=== PATIENT | male | born 1970 | race Hispanic/Latino ===

== ENCOUNTER → 2018-06-23 | Outpatient (REF) | payer OTHER ==
[2018-06-23 18:14] LABS: RHEUMATOID FACTOR QUANT < 10.0 IU/ML (<15.0)
[2018-06-23 19:56] LABS: ERYTHROCYTE SEDIMENTATION RATE 3 mm/hr (0-15)
[2018-06-25 12:23] LABS: FOLATE 11.9 NG/ML
[2018-06-29 11:11] LABS: DRVV SCREEN 42.7 SEC
== END ==
LOC: M LABNEURO 13:47
DX: M54.2 Cervicalgia (principal); M79.603 Pain in arm, unspecified